=== PATIENT | male | born 1990 | race Caucasian/White ===

== ENCOUNTER 2022-10-20 12:18 | Emergency (ER) | payer OTHER ==
[2022-10-20] MEDS ORDERED: Ketorolac Tromethamine 30 MG/ML VIAL ONE (13:00)
== END 2022-10-20 12:58 ==
LOC: CSHERS 12:18 → EEVIPCON 12:18 → CSHERS 12:58
DX: S09.92XA Unspecified injury of nose, initial encounter (principal); W51.XXXA Accidental striking against or bumped into by another person, initial encounter; Y93.67 Activity, basketball
CPT/HCPCS: 96372; 99283; J1885